=== PATIENT | female | born 1950 | race Hispanic/Latino ===

== ENCOUNTER 2021-06-11 20:31 | Emergency (ER) | payer MEDICARE, OTHER ==
--- OUTSIDE RECORDS SUMMARY | 2021-06-11 20:34 | XMS REPORT | Continuity of Care Document ---
:1950 Author Organization [facility] t Address [address] [place] [address] Care Team Providers Name Role Phone CHRISTINE Attending Clinician Unavailable KEILA Attending Clinician Unavailable Drea Ernst Attending Clinician Unavailable VEENA Attending Clinician Unavailable Physician, Primary or Family Admitting Clinician Unavailabl e Payers Payer Name Policy Type Policy Number Effective Date Expiration Date S ource Problems This patient has no known problems. Allergies, Adverse Reactions, Alerts This patient has no known allergies or adverse reactions. Medications This patient has no known medications. Procedures This patient has no known procedures. Encounters Start End Encounter Admission Attending Care Care Encounter Source Date/Time Date/Time Type Type Clinicians Facility Department ID 2021-03-22 2021-03-22 Outpatient JEOVANNY KING [id number] [place] 00:00:00 00:00:00 VERÓNICA garcia 2021-01-07 2021-01-07 Outpatient [facility] [id number] [place] 00:00:00 00:00:[address] 2020-08-16 2020-08-16 Outpatient ERNST, TRAM [facility] [id number] [place] 00:00:00 00:00:[address] 2020-08-09 2020-08-09 Outpatient EL Ernst, Tram [facility] LA40 [id number] [facility] 12:00:00 12:00:00 [id number] [facility] 2020-08-03 2020-08-03 Outpatient ERNST, TRAM [facility] [id number] [place] 00:00:00 00:00:[address] 2020-08-03 2020-08-03 Outpatient ERNST, TRAM [facility] [id number] [place] 00:00:00 00:00:[address] 2020-05-30 2020-05-30 Outpatient VEENA, [facility] [id number] [place] 00:00:00 00:00:00 GI[address] [facility] 2020-05-09 2020-05-09 Outpatient [facility] [id number] [place] 00:00:00 00:00:[address] 2019-07-21 2019-07-21 Outpatient ERNST, TRAM [facility] [id number] [place] 00:00:00 00:00:[address] Results This patient has no known results.
--- NOTE | 2021-06-11 21:51 | RAD REPORT ---
EXAM DESCRIPTION: US - Extremity Venous Uni Ltd - 06/11/2021 9:09 pm CLINICAL HISTORY: thigh pain Leg swelling and edema. COMPARISON: No comparisons FINDINGS: Right lower extremity venous system was interrogated with Doppler technique. Normal flow, compressibility and augmentation was noted. There is no DVT present. IMPRESSION: No evidence of right lower extremity deep venous thrombosis.
--- NOTE | 2021-06-11 21:52 | RAD REPORT ---
EXAM DESCRIPTION: RAD - Femur Right - 06/11/2021 9:44 pm CLINICAL HISTORY: right thigh pain COMPARISON: Hip Right 2 View dated 06/11/2021 FINDINGS: No fracture or dislocation seen.
--- NOTE | 2021-06-11 21:52 | RAD REPORT ---
EXAM DESCRIPTION: RAD - Hip Right 2 View - 06/11/2021 9:44 pm CLINICAL HISTORY: PAIN COMPARISON: No comparisons FINDINGS: No fracture, dislocation or AVN pattern observed.
--- NOTE | 2021-06-11 23:13 | EDPHYS ---
Physician Documentation [facility] Name: Katarina Cedillo Age: 71 yrs Sex: Female : 1950 Arrival Date: 06/11/2021 Time: 20:37 Bed 12 Private MD: ED Physician Miguel Pandya HPI: 06/11 20:45 This 71 yrs old Female presents to ER via Ambulatory with complaints of Thigh jmm Pain. 20:45 The patient presents with pain, that is acute. Onset: The symptoms/episode jmm began/occurred gradually, 3 day(s) ago. Modifying factors: The symptoms are alleviated by nothing. the symptoms are aggravated by nothing. Associated signs and symptoms: Pertinent positives:. This is a 71-year-old female with history of hypertension the presents emerged part with complaints of right anterior thigh pain. This past Sunday. Patient denies any known trauma, denies fever, denies shortness of breath. Denies known leg swelling.. Historical: - Allergies: 20:54 Bactrim; lg3 20:54 Macrobid; lg3 - Home Meds: 20:54 amlodipine 5 mg oral tab once daily [Active]; Synthroid 88 mcg oral tab once daily lg3 [Active]; - PMHx: 20:54 Hypertension; lg3 - PSHx: 20:54 section; partial thyroidectomy; lg3 - Immunization history:: Adult Immunizations up to date, Client reports receiving the 2nd dose of the Covid vaccine, pfizer X3. - Social history:: Smoking status: Patient reports the use of cigarette tobacco products, smokes one-half pack cigarettes per day, Patient uses alcohol, occasionally. Patient/guardian denies using street drugs, IV drugs. ROS: 20:45 Constitutional: Negative for fever, chills, and weight loss, Cardiovascular: Negative jmm for chest pain, palpitations, and edema, Respiratory: Negative for shortness of breath, cough, wheezing, and pleuritic chest pain, Abdomen/GI: Negative for abdominal pain, nausea, vomiting, diarrhea, and constipation. 20:45 MS/extremity: Positive for pain. 20:45 All other systems are negative. Exam: 20:45 Constitutional: This is a well developed, well nourished patient who is awake, alert, jmm and in no acute distress. Head/Face: atraumatic. Eyes: EOMI, no conjunctival erythema appreciated ENT: Moist Mucus Membranes Neck: Trachea midline, Supple Chest/axilla: Normal chest wall appearance and motion. Cardiovascular: Regular rate and rhythm. No edema appreciated Respiratory: Normal respirations, no respiratory distress appreciated Abdomen/GI: Non distended, soft Back: Normal ROM Skin: General appearance color normal 20:45 Musculoskeletal/extremity: Mild pain appreciated on palpation of the right anterior thigh, no obvious deformity appreciated, compartments are soft, full dorsalis pedis pulse appreciated, neurovascular intact. 20:45 Skin: Appearance: Color: normal in color. 20:45 Neuro: Orientation: is normal, Mentation: is normal, Memory: is normal. 20:45 Psych: Behavior/mood is pleasant, cooperative. Vital Signs: 20:52 BP 160 / 94; Pulse 85; Resp 16 S; Temp 98.6(O); Pulse Ox 98% on R/A; Weight 71.67 kg lg3 (R); Height 5 ft. 2 in. (157.48 cm) (R); Pain 2/10; 22:07 BP 139 / 74; Pulse 86; Resp 17 S; Pulse Ox 97% on R/A; lg3 23:22 BP 146 / 82; Pulse 90; Resp 17 S; Pulse Ox 98% on R/A; lg3 20:52 Body Mass Index 28.90 (71.67 kg, 157.48 cm) lg3 MDM: 20:45 Patient medically screened. [facility] 23:12 Data reviewed: vital signs, nurses notes. Counseling: I had a detailed discussion with kasia the patient and/or guardian regarding: the historical points, exam findings, and any diagnostic results supporting the discharge/admit diagnosis, the need for outpatient follow up, to return to the emergency department if symptoms worsen or persist or if there are any questions or concerns that arise at home. 06/11 20:49 Order name: Hip Right 2 View XRAY; Complete Time: 22:01 [facility] 06/11 20:49 Order name: Femur Right XRAY; Complete Time: 22:01 [facility] 06/11 20:49 Order name: US Extremity Venous Unilateral Ltd; Complete Time: 22:01 [facility] Administered Medications: No medications were administered Disposition: 06/12 03:08 Co-signature as Attending Physician, Miguel Pandya MD. rn Disposition Summary: 06/11/21 23:13 Discharge Ordered Location: Home [facility] Condition: Stable jmm Diagnosis - Pain in right leg [facility] Followup: [facility] - With: Shawn Moore MD - When: 2 - 3 days - Reason: Recheck today's complaints, Continuance of care, Re-evaluation by your physician Discharge Instructions: - Discharge Summary Sheet jmm - Musculoskeletal Pain [facility] Forms: - Medication Reconciliation Form [facility] - Thank You Letter [facility] - Antibiotic Education [facility] - Prescription Opioid Use [facility] Prescriptions: - orphenadrine citrate 100 mg Oral Tablet Sustained Release - take 1 tablet by ORAL route 2 times per day As needed; 20 tablet; Refills: 0, jm Product Selection Permitted Signatures: Dispatcher [employer] EDThanh Casiano PA PA m Miguel Pandya MD MD rn Gibson, Lacie, RN RN lg3 Corrections: (The following items were deleted from the chart) 06/11 20:56 20:54 PMHx: huypertension; lg3 lg3
--- NOTE | 2021-06-11 23:13 | ER ---
Nurse's Notes [facility] Name: Katarina Cedillo Age: 71 yrs Sex: Female : 1950 Arrival Date: 06/11/2021 Time: 20:37 Bed 12 Private MD: Diagnosis: Pain in right leg Presentation: 06/11 20:52 Chief complaint: Patient states: right thigh pain starting last sunday. Coronavirus lg3 screen: Client denies travel out of the [place] in the last 14 days. At this time, the client does not indicate any symptoms associated with coronavirus-19. Ebola Screen: No symptoms or risks identified at this time. Initial Sepsis Screen: Does the patient meet any 2 criteria? No. Patient's initial sepsis screen is negative. Does the patient have a suspected source of infection? No. Patient's initial sepsis screen is negative. Risk Assessment: Do you want to hurt yourself or someone else? Patient reports no desire to harm self or others. Onset of symptoms was June 08, 2021. 20:52 Method Of Arrival: Ambulatory lg3 20:52 Acuity: PHIL 3 lg3 Triage Assessment: 20:54 General: Appears in no apparent distress. comfortable, Behavior is calm, cooperative. lg3 Pain: Complains of pain in right thigh Pain radiates to right hip and right knee Pain currently is 2 out of 10 on a pain scale. at worst was 8 out of 10 on a pain scale. Quality of pain is described as burning, aching, crampy, pressure, radiating. EENT: No deficits noted. No signs and/or symptoms were reported regarding the EENT system. Neuro: No deficits noted. Level of Consciousness is awake, alert, obeys commands, Oriented to person, place, time, situation. Cardiovascular: No deficits noted. Denies chest pain, lightheadedness, shortness of breath. Respiratory: No deficits noted. Airway is patent Trachea midline Respiratory effort is even, unlabored, Respiratory pattern is regular, symmetrical. GI: No deficits noted. No signs and/or symptoms were reported involving the gastrointestinal system. Abdomen is round non-distended. : No deficits noted. No signs and/or symptoms were reported regarding the genitourinary system. Derm: No deficits noted. No signs and/or symptoms reported regarding the dermatologic system. Skin is intact, is healthy with good turgor, Skin is dry. Musculoskeletal: No deficits noted. Circulation, motion, and sensation intact. Capillary refill < 3 seconds, Range of motion: intact in all extremities. Historical: - Allergies: 20:54 Bactrim; lg3 20:54 Macrobid; lg3 - Home Meds: 20:54 amlodipine 5 mg oral tab once daily [Active]; Synthroid 88 mcg oral tab once daily lg3 [Active]; - PMHx: 20:54 Hypertension; lg3 - PSHx: 20:54 section; partial thyroidectomy; lg3 - Immunization history:: Adult Immunizations up to date, Client reports receiving the 2nd dose of the Covid vaccine, pfizer X3. - Social history:: Smoking status: Patient reports the use of cigarette tobacco products, smokes one-half pack cigarettes per day, Patient uses alcohol, occasionally. Patient/guardian denies using street drugs, IV drugs. Screenin:58 Abuse screen: Denies threats or abuse. Denies injuries from another. Nutritional lg3 screening: No deficits noted. Tuberculosis screening: No symptoms or risk factors identified. Fall Risk None identified. Vital Signs: 20:52 BP 160 / 94; Pulse 85; Resp 16 S; Temp 98.6(O); Pulse Ox 98% on R/A; Weight 71.67 kg lg3 (R); Height 5 ft. 2 in. (157.48 cm) (R); Pain 2/10; 22:07 BP 139 / 74; Pulse 86; Resp 17 S; Pulse Ox 97% on R/A; lg3 23:22 BP 146 / 82; Pulse 90; Resp 17 S; Pulse Ox 98% on R/A; lg3 20:52 Body Mass Index 28.90 (71.67 kg, 157.48 cm) lg3 ED Course: 20:37 Patient arrived in ED. 20:42 Thanh Mann PA is PHCP. jmtung 20:42 Miguel Pandya MD is Attending Physician. jmm 20:52 Carla Romero, SAE is Primary Nurse. lg3 20:53 Triage completed. lg3 20:54 Arm band placed on right wrist. lg3 20:58 Patient has correct armband on for positive identification. Bed in low position. Call lg3 light in reach. Side rails up X 1. Pulse ox on. NIBP on. Door closed. Noise minimized. Warm blanket given. 21:09 US Extremity Venous Unilateral Ltd In Process Unspecified. EDMS 21:44 Hip Right 2 View XRAY In Process Unspecified. EDMS 21:44 Femur Right XRAY In Process Unspecified. EDMS 23:13 Shawn Moore MD is Referral Physician. [facility] 23:21 No provider procedures requiring assistance completed. Patient did not have IV access lg3 during this emergency room visit. Administered Medications: No medications were administered Outcome: 23:13 Discharge ordered by . jm 23:21 Discharged to home ambulatory. lg3 23:21 Condition: stable 23:21 Discharge instructions given to patient, Instructed on discharge instructions, follow up and referral plans. medication usage, Prescriptions given X 1. 23:23 Patient left the ED. lg3 Signatures: Dispatcher [employer] EDMS Thanh Mann PA PA jmm Gibson, Lacie, RN RN lg3 Carmen Curtis Corrections: (The following items were deleted from the chart) 20:56 20:54 PMHx: huypertension; lg3 lg3
[2021-06-11 23:28] VITALS: TEMP 98.6
[2021-06-11 23:30] VITALS: BP 146/82; O2SAT 98
== END 2021-06-11 23:23 | disposition home or self-care (01) ==
LOC: ER 20:31
DX: M79.604 Pain in right leg (principal); I10 Essential (primary) hypertension; F17.210 Nicotine dependence, cigarettes, uncomplicated; Z88.1 Allergy status to other antibiotic agents
CPT/HCPCS: 93971; 99283